=== PATIENT | female | born 1990 | race Caucasian/White ===

== ENCOUNTER → 2018-05-23 | Day surgery (SDC) | payer OTHER ==
[~2018-05-23] MED LIST: FENTANYL CITRATE/PF 100MCG/2 ML INJ ONE; MIDAZOLAM HCL 2 MG/2 ML VIAL ONE; PROPOFOL IV EMULSION 10 MG/ML 50 ML VIAL ONE
[2018-05-23 11:42] LABS: WBC,FECAL (FECAL LACTOFERRIN) NEGATIVE (NEGATIVE)
--- NOTE | 2018-05-23 13:03 | Operative Report ---
DATE OF PROCEDURE: May 23, 2018 PROCEDURE PERFORMED: Colonoscopy and polypectomy with biopsies. INDICATIONS FOR COLONOSCOPY: Chronic diarrhea, fecal urgency. MEDICATION: Patient was done under MAC. Please see anesthesiologist's note. PROCEDURE: With the patient in the left lateral decubitus position, the flexible fiberoptic Olympus colonoscope was inserted into the rectum with ease and advanced all the way to the cecum. Mucosa overlying the cecum appeared to be within normal limits. The ileocecal valve was intubated, and the scope was advanced into the terminal ileum. Biopsies were obtained. The scope was then withdrawn back into the colon. It was then withdrawn slowly, and some scattered diverticular disease was noted pretty much throughout. The mucosa overlying the left colon revealed some patchy mild inflammatory changes, and multiple random biopsies were obtained. One polyp was snared from the sigmoid colon. Similar inflammatory findings were also noted in the rectum, and biopsies were obtained. The scope was then retroflexed into the distal rectum and small internal hemorrhoids were noted, none of which was actively bleeding. The scope was then straightened out. It was subsequently withdrawn after securing an adequate stool specimen that was sent for the appropriate stool studies. A minute fissure was noted on the way out. Patient tolerated procedure well. IMPRESSION: 1. Diverticulosis. 2. Mild patchy left-sided colitis, random biopsies obtained. 3. Sigmoid colon polyp snared. 4. Proctitis, mild. 5. Internal hemorrhoids, none actively bleeding. 6. Anal fissure. PLAN: Follow up histology. Follow up stool studies. Initiate Bentyl 10 mg one p.o. t.i.d., VSL#3 one p.o. daily. Timing of followup colonoscopy pending pathology report. Job#: [id number] RADHA
[2018-05-23 14:52] LABS: C DIFFICILE TOXIN A&B AMP PROB NEGATIVE (NEGATIVE)
== END | disposition home or self-care (01) ==
LOC: OR 09:12
PROVIDERS: ATTEND Internal Medicine Gastroenterology
DX: K51.50 Left sided colitis without complications (principal); D12.5 Benign neoplasm of sigmoid colon; K57.30 Diverticulosis of large intestine without perforation or abscess without bleeding; K60.2 Anal fissure, unspecified; K62.89 Other specified diseases of anus and rectum; K64.8 Other hemorrhoids; R03.0 Elevated blood-pressure reading, without diagnosis of hypertension; Z68.38 Body mass index [BMI] 38.0-38.9, adult
CPT/HCPCS: 45380; 45385; 81025; 83630; 83993; 87045; 87177; 87328; 87493; J2250; 45378

== ENCOUNTER → 2018-07-25 | Day surgery (SDC) | payer OTHER ==
[2018-07-21 12:22] LABS: BASOPHILS # (AUTO) 0.1 (0.0-0.1); BASOPHILS % 0.9 % (0.0-1.0); EOSINOPHILS # (AUTO) 0.4 (0.0-0.4); EOSINOPHILS % 3.3 % (0.0-6.0); HEMATOCRIT 40.9 % (34.2-44.1); HEMOGLOBIN 13.6 g/dL (12.0-16.0); LYMPHOCYTES # (AUTO) 4.1 (1.0-3.2); LYMPHOCYTES % 34.9 % (18.0-39.1); MEAN CORPUSCULAR HEMOGLOBIN 28.8 pg (28-32); MEAN CORPUSCULAR HGB CONC 33.3 g/dL (31-35); MEAN CORPUSCULAR VOLUME 86.5 fL (81-99); MONOCYTES # (AUTO) 0.6 (0.2-0.8); MONOCYTES % 5.2 % (4.4-11.3); NEUTROPHILS # (AUTO) 6.5 (2.1-6.9); NEUTROPHILS % 55.4 % (38.7-80.0); PLATELET COUNT 332 x10e3/uL (140-360); RED BLOOD COUNT 4.73 x10e6/uL (3.6-5.1); RED CELL DISTRIBUTION WIDTH 12.9 % (11.7-14.4)
[~2018-07-25] MED LIST changes: +ACETAMINOPHEN 1000 MG/100 ML IV ONE; +BUPIVACAINE 0.25%/EPI 30ML SDV INJ ONE; +DEXAMETHASONE SOD PHOS INJ 4 MG/ML VIAL ONE; +GELATIN SPONGE 12-7MM ONE; +GELATIN SPONGE SZ 100 ONE; +ISOFLURANE INHAL SOLN 250 ML BTL INH ONE; +LIDOCAINE HCL 1% 30ML-PF VIAL ONE; +LIDOCAINE HCL 2% 30 ML TUBE ONE; +LIDOCAINE HCL 2% LOCAL INJ 5 ML SDV VIAL INJ ONE; +ONDANSETRON HCL INJ 2 MG/ML VIAL ONE; +PROPOFOL IV EMULSION 10 MG/ML 20 ML VIAL ONE; -PROPOFOL IV EMULSION 10 MG/ML 50 ML VIAL ONE
[2018-07-25 17:08] VITALS: BP 127/76
--- NOTE | 2018-09-11 13:06 | Operative Report ---
DATE OF PROCEDURE: July 25, 2018 PREOPERATIVE DIAGNOSIS: Anal fissure. POSTOPERATIVE DIAGNOSIS: Anal fissure. OPERATION PERFORMED: Left lateral partial superficial internal sphincterotomy and fissurectomy. ANESTHESIA: General. COMPLICATIONS: None. ESTIMATED BLOOD LOSS: Minimal. DESCRIPTION OF PROCEDURE: With the patient lying in bed in the lithotomy position, under good general anesthesia, the perineum was prepped with Betadine solution and draped in the usual manner. A complete anorectal block was then performed using 1/4 percent Marcaine and 1% lidocaine mixed in equal parts. Examination at this point revealed the known fissure that the patient had posteriorly. An incision was then made at the 3 o'clock position, and the superficial fibers of the internal sphincter were identified. This was then slowly and carefully delivered and divided with the cautery, and a partial sphincterotomy was performed without any difficulty. The incision was then closed with interrupted sutures of 3-0 chromic. After this was done, all of the scar tissue around the fissure was then sharply debrided, and all of the edges and base of the fissure were debrided. After this was done, hemostasis was ascertained. A Gelfoam pack impregnated with Xylocaine was then placed. A dressing was applied. The sponge, lap and needle count was correct. Patient tolerated the procedure well and returned to the recovery room in stable condition. Job#: [id number]
== END | disposition home or self-care (01) ==
LOC: OR 11:13
PROVIDERS: ATTEND Surgery
DX: K60.2 Anal fissure, unspecified (principal); Z01.812 Encounter for preprocedural laboratory examination
CPT/HCPCS: 36415; 46200; 81025; 85025; J1100; J2001 ×2; J2250; J2405